=== PATIENT | male | born 1975 | race Caucasian/White ===

== ENCOUNTER 2019-08-06 05:54 | Inpatient (IN) | payer BC ==
[~2019-08-06] VITALS: Ht 182.9 cm; Wt 96.9 kg
[2019-08-06] MEDS ORDERED: heparin 25,000 UNIT/250ml bag 250 ML IV SCH (06:20)
[2019-08-06 06:24] LABS: BASOPHILS % (AUTO) 0.5 % (0-1); EOSINOPHILS # (AUTO) 0.1 X10'3 (0-0.9); EOSINOPHILS % (AUTO) 0.8 % (0-6); HEMATOCRIT 39.9 % (42.0-52.0); HEMOGLOBIN 13.6 g/dl (14.0-17.9); LYMPHOCYTES # (AUTO) 1.8 X10'3 (1.1-4.8); MEAN CORPUSCULAR HEMOGLOBIN 30.6 PG (27.0-31.0); MEAN CORPUSCULAR HGB CONC 34.1 g/dL (33.0-36.5); MEAN CORPUSCULAR VOLUME 89.8 FL (78-98); MEAN PLATELET VOLUME 6.7 FL (7.4-10.4); MONOCYTES # (AUTO) 1.4 X10'3 (0-0.9); MONOCYTES % (AUTO) 16.8 % (2-12); NEUTROPHILS % (AUTO) 59.9 % (42-75); PLATELET COUNT 242 X10'3 (140-440); RED BLOOD COUNT 4.44 X10'6 (4.70-6.10); RED CELL DISTRIBUTION WIDTH 12.7 % (11.5-14.5); WHITE BLOOD COUNT 8.4 X10'3 (4.5-11.0)
[2019-08-06 06:43] LABS: ALANINE AMINOTRANSFERASE 35 U/L (12-78); ALBUMIN 3.2 G/DL (3.4-5.0); ALBUMIN/GLOBULIN RATIO 0.9 (1.1-1.5); ALKALINE PHOSPHATASE 52 IU/L (46-116); ANION GAP 8 (8-16); ASPARTATE AMINO TRANSFERASE 23 U/L (10-37); BILIRUBIN,TOTAL 0.5 MG/DL (0.1-1.0); BLOOD UREA NITROGEN 11 MG/DL (7-18); BUN/CREATININE RATIO 11.5 (5.4-32.0); CALCIUM 8.3 MG/DL (8.5-10.1); CHLORIDE 106 MMOL/L (99-107); CREATININE 0.96 MG/DL (0.60-1.10); GLUCOSE 118 MG/DL (70-104); POTASSIUM 4.1 MMOL/L (3.5-5.1); SODIUM 140 MMOL/L (135-145); TOTAL CARBON DIOXIDE 26.4 MMOL/L (24-32); TOTAL PROTEIN 6.7 G/DL (6.4-8.2); eGFR 85 ML/MIN
[2019-08-06] MEDS: heparin 25,000 UNIT/250ml bag 250 ML IV SCH ×2 (06:48→20:52)
[2019-08-06 06:54] LABS: TOTAL CELLS COUNTED 100
[2019-08-06 06:55] LABS: PLATELET ESTIMATE NORMAL
[2019-08-06] MEDS ORDERED: FENO160T PO (08:41)
[2019-08-06] MEDS ORDERED: HYDROcodone/acetaminophen 10/325mg tab PO PRN (09:15)
[2019-08-06] MEDS ORDERED: magnesium Cl slow-release 64mg tablet PO PRN (09:15)
[2019-08-06] MEDS ORDERED: magnesium 4gm in 100ml NS 100 ML IV PRN (09:15)
[2019-08-06] MEDS ORDERED: potassium Cl 20 mEq SR tablet PO PRN ×2 (09:15)
[2019-08-06] MEDS ORDERED: HYDROcodone/acetaminophen 5mg/325mg tablet PO PRN (09:15)
[2019-08-06] MEDS ORDERED: magnesium hydroxide 30ml (MOM) UD suspension PO PRN (09:15)
[2019-08-06] MEDS ORDERED: diphenhydrAMINE 25mg capsule PO PRN (09:15)
[2019-08-06] MEDS ORDERED: mag hydrox/Alum hydrox/simeth 30ml oral suspension PO PRN (09:15)
[2019-08-06] MEDS ORDERED: potassium CL 10mEq/100ml bag 100 ML IV PRN ×2 (09:15)
[2019-08-06] MEDS ORDERED: acetaminophen 650mg rectal suppository RC PRN (09:15)
[2019-08-06] MEDS ORDERED: acetaminophen 325mg tablet PO PRN ×2 (09:15)
[2019-08-06] MEDS ORDERED: bisacodyl 10mg suppository rectal RC PRN (09:15)
[2019-08-06] MEDS ORDERED: magnesium 2GM in 50ml NS 50 ML IV PRN (09:15)
[2019-08-06] MEDS ORDERED: morphine 2 MG/ML inj. syringe IV PRN ×2 (09:15)
[2019-08-06] MEDS ORDERED: ondansetron/PF 4mg/2ml inj IV PRN (09:15)
[2019-08-06] MEDS: fenofibrate 145mg tablet PO SCH (09:19)
[2019-08-06] MEDS: normal saline 1000ml 1,000 ML IV SCH ×2 (09:20→20:57)
[2019-08-06] MEDS: atorvastatin 20mg tablet PO SCH (09:53)
[2019-08-06 10:54] LABS: COLOR,URINE YELLOW (Yellow); GLUCOSE, URINE NEGATIVE (Neg); KETONES,URINE NEGATIVE (Neg); LEUKOCYTE ESTERASE ,URINE NEGATIVE (Neg); NITRITES, URINE NEGATIVE (Neg); OCCULT BLOOD,URINE LARGE (Neg); PROTEIN,URINE NEGATIVE (Neg); UA COLLECTION TYPE VOIDED; UROBILINOGEN,URINE 0.2 E.U/dL (0.2-1.0)
[2019-08-06 10:55] LABS: CLARITY,URINE SLIGHTLY CLOUDY (Clear)
[2019-08-06 11:02] LABS: URINE AMPHETAMINE SCREEN NEGATIVE (Neg); URINE BARBITUATE SCREEN NEGATIVE (Neg); URINE BENZODIAZEPINES SCREEN NEGATIVE (Neg); URINE CANNABINOID SCREEN POSITIVE (Neg); URINE COCAINE SCREEN POSITIVE (Neg); URINE METHADONE SCREEN NEGATIVE (Neg); URINE OPIATE SCREEN NEGATIVE (Neg); URINE PHENCYCLIDINE SCREEN NEGATIVE (Neg)
[2019-08-06 11:16] LABS: BACTERIA,URINE NONE SEEN /HPF (Neg); MUCUS STRANDS MANY /LPF (Neg); SQUAMOUS EPITHELIAL CELL,UR FEW /LPF (FEW)
[2019-08-06 11:17] LABS: WBC,URINE 0-4 /HPF (0-4)
--- NOTE | 2019-08-06 11:35 | NUR ---
Received report from NIK Hazel RN.
[2019-08-06 12:20] VITALS: BP 133/77
[2019-08-06] MEDS: heparin 10,000 units/1 ML INJ IV PRN ×2 (14:06→20:50)
[2019-08-06 14:17] VITALS: BP 139/88
[2019-08-06 18:00] VITALS: BP 126/84
--- NOTE | 2019-08-06 18:26 | NUR ---
Reported off to Susan RN, transferred care over.
--- NOTE | 2019-08-06 18:27 | NUR ---
Patient in room MED 308. I have received report from Venecia GONZALEZ and had the opportunity to ask questions and assume patient care.
[2019-08-06] MEDS: K and/or MAG REPLACEMENT MC SCH ×2 (19:34→20:00)
[2019-08-06] MEDS ORDERED: carVEDilol 3.125mg tablet PO SCH (20:00)
[2019-08-06 22:00] VITALS: BP 129/81
[2019-08-07] VITALS (12 sets, daily range): BP systolic 102–122; BP diastolic 66–83
[2019-08-07] MEDS: heparin 25,000 UNIT/250ml bag 250 ML IV SCH ×2 (02:13→05:00)
[2019-08-07 03:46] LABS: BASOPHILS % (AUTO) 0.3 % (0-1); EOSINOPHILS # (AUTO) 0.1 X10'3 (0-0.9); HEMATOCRIT 39.2 % (42.0-52.0); HEMOGLOBIN 13.5 g/dl (14.0-17.9); LYMPHOCYTES # (AUTO) 2.1 X10'3 (1.1-4.8); LYMPHOCYTES % (AUTO) 24.5 % (21-51); MEAN CORPUSCULAR HEMOGLOBIN 31.1 PG (27.0-31.0); MEAN CORPUSCULAR HGB CONC 34.6 g/dL (33.0-36.5); MEAN PLATELET VOLUME 6.8 FL (7.4-10.4); MONOCYTES # (AUTO) 1.3 X10'3 (0-0.9); MONOCYTES % (AUTO) 15.8 % (2-12); NEUTROPHILS % (AUTO) 58.4 % (42-75); PLATELET COUNT 251 X10'3 (140-440); RED BLOOD COUNT 4.35 X10'6 (4.70-6.10); RED CELL DISTRIBUTION WIDTH 12.8 % (11.5-14.5); WHITE BLOOD COUNT 8.5 X10'3 (4.5-11.0)
[2019-08-07 04:02] LABS: ALANINE AMINOTRANSFERASE 32 U/L (12-78); ALBUMIN 3.1 G/DL (3.4-5.0); ALBUMIN/GLOBULIN RATIO 0.9 (1.1-1.5); ALKALINE PHOSPHATASE 50 IU/L (46-116); ANION GAP 8 (8-16); ASPARTATE AMINO TRANSFERASE 22 U/L (10-37); BILIRUBIN,TOTAL 0.7 MG/DL (0.1-1.0); BLOOD UREA NITROGEN 9 MG/DL (7-18); BUN/CREATININE RATIO 9.2 (5.4-32.0); CALCIUM 8.4 MG/DL (8.5-10.1); CHLORIDE 104 MMOL/L (99-107); CHOL/HDL RATIO 3.9 (0.00-4.99); CHOLESTEROL 170 MG/DL (0-200); CREATININE 0.98 MG/DL (0.60-1.10); GLUCOSE 104 MG/DL (70-104); HDL CHOLESTEROL 44 MG/DL (35-60); LDL CHOLESTEROL 92 MG/DL (50-100); PHOSPHORUS 3.2 MG/DL (2.3-4.5); SODIUM 139 MMOL/L (135-145); TOTAL CARBON DIOXIDE 27.4 MMOL/L (24-32); TOTAL PROTEIN 6.7 G/DL (6.4-8.2); TRIGLYCERIDES 210 MG/DL (20-135); eGFR 83 ML/MIN
[2019-08-07 04:17] LABS: PLATELET ESTIMATE NORMAL; TOTAL CELLS COUNTED 100
[2019-08-07] MEDS: heparin 10,000 units/1 ML INJ IV PRN (04:55)
[2019-08-07] MEDS ORDERED: fentaNYL/PF 50MCG/1 ML 2ML syringe ONE (06:00)
[2019-08-07] MEDS ORDERED: LIDOcaine 1% (10mg/ml)w/preservative injection 20ml MDV ONE (06:01)
[2019-08-07] MEDS ORDERED: iohexol 350MG/ML 100ml bottle IV ONE ×2 (06:01→13:20)
[2019-08-07] MEDS ORDERED: midazolam 2 mg/2 ml injection ONE (06:01)
--- NOTE | 2019-08-07 06:26 | NUR ---
Patient in room MED 308. I have received report from tyrese romero and had the opportunity to ask questions and assume patient care.
--- NOTE | 2019-08-07 06:26 | NUR ---
Problems reprioritized. Patient report given, questions answered & plan of care reviewed with Kriss GONZALEZ.
--- NOTE | 2019-08-07 06:45 | NUR ---
received report from slab inspector RN ,right groin site clear,pt verbalizes understanding need to lie flat for 4 hours,will moniter closely
[2019-08-07] MEDS ORDERED: HYDROcodone/acetaminophen 10/325mg tab PO PRN (07:20)
[2019-08-07] MEDS ORDERED: ondansetron/PF 4mg/2ml inj IV PRN (07:20)
[2019-08-07] MEDS ORDERED: OXAZEpam 15mg capsule PO PRN (07:20)
[2019-08-07] MEDS ORDERED: nitroGLYCERIN 0.4mg SUBLingual tab SL PRN (07:20)
[2019-08-07] MEDS ORDERED: normal saline 1000ml 1,000 ML IV SCH (07:20)
[2019-08-07] MEDS ORDERED: proCHLORperazine 10 MG/2 ml inj IV PRN (07:20)
[2019-08-07] MEDS ORDERED: HYDROcodone/acetaminophen 5mg/325mg tablet PO PRN (07:20)
[2019-08-07] MEDS ORDERED: nitroGLYCERIN 0.4mg/hour patch TD SCH (08:00)
[2019-08-07] MEDS: lisinopril 5mg tablet PO SCH (08:00)
[2019-08-07] MEDS: atorvastatin 20mg tablet PO SCH (09:52)
[2019-08-07] MEDS: fenofibrate 145mg tablet PO SCH (09:52)
[2019-08-07] MEDS: aspirin 81mg tablet.DR PO SCH (09:53)
--- NOTE | 2019-08-07 11:12 | NUR ---
Sent page to EKG. Rm 308, [place]. Pt needs post heart cath EKG. Thank you.
--- NOTE | 2019-08-07 18:51 | NUR ---
Problems reprioritized. Patient report given, questions answered & plan of care reviewed with tyrese romero.
[2019-08-07] MEDS: K and/or MAG REPLACEMENT MC SCH (20:00)
[2019-08-08 02:00] VITALS: BP 107/65
[2019-08-08 06:10] LABS: BASOPHILS % (AUTO) 0.3 % (0-1); EOSINOPHILS # (AUTO) 0.1 X10'3 (0-0.9); EOSINOPHILS % (AUTO) 1.8 % (0-6); HEMATOCRIT 39.8 % (42.0-52.0); HEMOGLOBIN 13.7 g/dl (14.0-17.9); LYMPHOCYTES # (AUTO) 1.8 X10'3 (1.1-4.8); LYMPHOCYTES % (AUTO) 33.4 % (21-51); MEAN CORPUSCULAR HEMOGLOBIN 31.1 PG (27.0-31.0); MEAN CORPUSCULAR HGB CONC 34.4 g/dL (33.0-36.5); MEAN CORPUSCULAR VOLUME 90.4 FL (78-98); MEAN PLATELET VOLUME 6.8 FL (7.4-10.4); MONOCYTES # (AUTO) 0.8 X10'3 (0-0.9); MONOCYTES % (AUTO) 14.2 % (2-12); NEUTROPHILS # (AUTO) 2.7 X10'3 (1.8-7.7); NEUTROPHILS % (AUTO) 50.3 % (42-75); PLATELET COUNT 280 X10'3 (140-440); RED CELL DISTRIBUTION WIDTH 12.6 % (11.5-14.5); WHITE BLOOD COUNT 5.4 X10'3 (4.5-11.0)
--- NOTE | 2019-08-08 06:17 | NUR ---
Problems reprioritized. Patient report given, questions answered & plan of care reviewed with Tamara GONZALEZ.
--- NOTE | 2019-08-08 06:19 | NUR ---
Patient in room MED 308. I have received report from LISA Davis and had the opportunity to ask questions and assume patient care.
[2019-08-08 06:23] LABS: ALANINE AMINOTRANSFERASE 31 U/L (12-78); ALBUMIN 3.1 G/DL (3.4-5.0); ALBUMIN/GLOBULIN RATIO 0.8 (1.1-1.5); ALKALINE PHOSPHATASE 49 IU/L (46-116); ANION GAP 7 (8-16); ASPARTATE AMINO TRANSFERASE 17 U/L (10-37); BILIRUBIN,TOTAL 0.6 MG/DL (0.1-1.0); BLOOD UREA NITROGEN 12 MG/DL (7-18); CHLORIDE 104 MMOL/L (99-107); CREATININE 0.92 MG/DL (0.60-1.10); GLUCOSE 106 MG/DL (70-104); MAGNESIUM 2.1 MG/DL (1.5-2.4); PHOSPHORUS 3.9 MG/DL (2.3-4.5); POTASSIUM 4.2 MMOL/L (3.5-5.1); SODIUM 139 MMOL/L (135-145); TOTAL CARBON DIOXIDE 28.5 MMOL/L (24-32); TOTAL PROTEIN 6.9 G/DL (6.4-8.2); eGFR 90 ML/MIN
[2019-08-08 07:00] VITALS: BP 113/75
[2019-08-08] MEDS: K and/or MAG REPLACEMENT MC SCH (08:00)
[2019-08-08] MEDS: fenofibrate 145mg tablet PO SCH (08:00)
[2019-08-08] MEDS: atorvastatin 20mg tablet PO SCH (08:00)
[2019-08-08] MEDS: aspirin 81mg tablet.DR PO SCH (08:00)
[2019-08-08] MEDS: lisinopril 5mg tablet PO SCH (08:00)
[2019-08-08] MEDS ORDERED: ASPI-1071 PO (10:11)
[2019-08-08] MEDS ORDERED: ATOR20TA66 PO (10:11)
[2019-08-08] MEDS ORDERED: LISI-642 PO (10:11)
[2019-08-08 11:04] VITALS: BP 108/63
--- NOTE | 2019-08-08 12:09 | NUR ---
Pt discharged to home with all belongings, in private vehicle, accompanied by . Discharge instructions and medications reviewed. New prescriptions e-scripted to [facility] in [place], [place]. Pt states he already has an appointment with PCP in [place]. Pt instructed to return to nearest ED if symptoms return. IV's, DC'd, cannula intact. Pt escorted to front lobby by RN.
== END 2019-08-08 12:03 | disposition home or self-care (01) | DRG 282 ==
LOC: ER 05:56 → ED HOLD 09:15 → MED 3N 11:50
PROVIDERS: ADMIT Family Medicine; ATTEND Family Medicine
PROC: 4A023N7 Measurement of Cardiac Sampling and Pressure, Left Heart, Percutaneous Approach (ICD-10-PCS; principal; 2019-08-07)
PROC: B2111ZZ Fluoroscopy of Multiple Coronary Arteries using Low Osmolar Contrast (ICD-10-PCS; 2019-08-07)
PROC: B2151ZZ Fluoroscopy of Left Heart using Low Osmolar Contrast (ICD-10-PCS; 2019-08-07)
DX: I21.4 Non-ST elevation (NSTEMI) myocardial infarction (principal); E78.00 Pure hypercholesterolemia, unspecified; I20.1 Angina pectoris with documented spasm; E78.1 Pure hyperglyceridemia; E78.5 Hyperlipidemia, unspecified; F10.10 Alcohol abuse, uncomplicated; F12.90 Cannabis use, unspecified, uncomplicated; F14.10 Cocaine abuse, uncomplicated; F17.210 Nicotine dependence, cigarettes, uncomplicated; I25.2 Old myocardial infarction; Z79.82 Long term (current) use of aspirin; Z81.8 Family history of other mental and behavioral disorders; Z83.3 Family history of diabetes mellitus
CPT/HCPCS: 36415; 71045; 71275; 80053; 80061; 80305; 81001; 83036; 83735; 83880; 84100; 84484; 85025; 85610; 85730; 87081; 93005; 93306; 93458; 96365; 96376; 99152; 99285; A4620; A6258; C1769; G0378; J1644; J2001; J2250; J3010; J7030; Q9967